=== PATIENT | female | born 1950 | race Caucasian/White ===

== ENCOUNTER 2017-03-27 07:01 | Inpatient (IN) ==
--- NOTE | 2017-03-24 11:43 | EKG Report ---
Stationary ECG Study [facility] Test Date: 03/24/2017 11:40:11 AM Pat Name: KULDIP ORTIZ Department: Room: Gender: F Certified Alcohol And Drug Counselor: EDD 03-27-17 : 1950 Requested by: Luc Georges Order Number: [id number] Reading MD: GINA COLVIN Intervals Martin Rate: 66 P: 76 IL: 173 QRS: 83 QRSD: 92 T: 73 QT: 407 QTc: 421 Interpretive Statements SINUS RHYTHM Electronically Signed On 03-24-17 14:40:07 CDT by GINA COLVIN [email or web address]
[2017-03-27] MEDS ORDERED: SODIUM CHLORIDE 0.9% 100 ML IV ONE (07:13)
[2017-03-27] MEDS ORDERED: ceFAZolin 1,000 MG VIAL ONE (07:13)
[2017-03-27] MEDS: LACTATED RINGERS 1,000 ML IV SCH (07:40)
--- NOTE | 2017-03-27 10:48 | Fluoroscopy Report ---
Exam: [place] cholangiogram in surgery Date: 03/27/2017 12:00 AM Comparison: None Indication: Cholelithiasis Technique:[49 C-arm films obtained after the injection of contrast material into the cystic duct. Fluoroscopy time of 21.3 seconds documented. Findings: Reported open cholecystectomy with leakage of the contrast material in the gallbladder bed location. Minimal dilatation of the bile ducts with no obstructing calculus. Probable small air bubble. Contrast in the duodenum.] Impression: Apparent open cholecystectomy with leakage of the contrast material in the gallbladder bed location. Minimal dilatation of the bile ducts with no obstructing calculus or obvious mass. PROCEDURE INTERPRETED AT [facility] DEPARTMENT OF RADIOLOGY Final Report Signed by: Dr. Rochelle Hernandez
[2017-03-27] MEDS ORDERED: LIDOCAINE 1%/EPI INJ 20 ML VIAL ONE (10:54)
--- NOTE | 2017-03-27 10:54 | Operative Note ---
Date of procedure: 03/27/17 Pre-op diagnosis: Cholelithiasis with chronic cholecystitis Post-op diagnosis: same Procedure: Laparoscopic converted to open cholecystectomy with intraoperative cholangiogram (22) Findings and technique: After informed consent was obtained patient was brought the operating room and placed in supine position. After successful induction of general anesthesia the patient's abdomen was prepped and draped in usual sterile fashion. Patient had a large chevron incision in her upper abdomen from her previous liver resection. She also had a large lower midline incision. I picked a free spot above her umbilicus and made a small transverse incision and used an open technique to gain entry into the peritoneal cavity. It was apparent on upon entering her abdomen that the entire upper abdomen was full of adhesions. I established a pneumoperitoneum after a Amita cannula was inserted under direct vision. Camera was inserted and I found the free space well down in the right lower quadrant and placed a 5 mm port. I attempted to dissect along the right colon and free up a window over the colon to gain entry in free space into the right upper quadrant trocar to identify the gallbladder. I dissected this direction for a while and did not feel that this was feasible. I then placed a port in the left upper quadrant and tried going from the left side to get into this area and encountered still very dense adhesions with the stomach and colon adhesions to the anterior abdominal wall. I then elected to convert to an open procedure through her old right chevron incision making a subcostal incision to the lateral aspect of her scar. Sharp dissection was carried down directly into the peritoneal cavity which was essentially liberated by adhesions. This had to be tediously freed up freeing the colon from the anterior abdominal wall and from the undersurface of the liver and from the gallbladder. The gallbladder was identified and dissection kept right on the wall the gallbladder freeing up the colon and freeing up down to the neck of the gallbladder. I incised the peritoneum over the neck of the gallbladder where there was a stone at the gallbladder neck. I elected to open the gallbladder at this point extract the stone and shoot a cholangiogram through the distal neck of the gallbladder which was normal. It showed a long cystic duct and that I was well away from the common bile duct. I had ligated the cystic duct at this location and doubly clipped the cystic artery as it branched over the medial neck of the gallbladder. I left the most distal part of the neck in place and dissected the gallbladder free from the liver bed without difficulty or blood loss. The gallbladder was removed and the liver bed irrigated inspected for bleeding and no bleeding or bile leakage noted. The fascial defect was closed with a running 0 PDS suture and skin incisions closed with 4-0 Vicryl subcuticular suture and tissue adhesive. This was much more difficult procedure than usual because of her previous liver surgery. This greatly added the complexity the case and essentially doubled the usual operative time. Anesthesia: GETA, local Surgeon / Physician: Andre Young III. Estimated blood loss: minimal Specimens: other (Gallbladder) Condition: stable Disposition: PACU Discharge Plan - Discharge Medications No Action Gabapentin Cap/Tab [Neurontin Cap/Tab] 300 mg PO TID Venlafaxine [Effexor] 75 mg PO DAILY Omeprazole [Prilosec] 40 mg PO DAILY - Follow Up or Referral - Forms/Instructions
--- NOTE | 2017-03-27 10:54 | Anesthesia Post-Op ---
Anesthesia Post OP - Post Ansesthetic Evaluation Patient seen in post op: Yes Resp: within normal limits CV: within normal limits Mental: within normal limits Temp: within normal limits Lydk-Xi-Xupeszwij: within normal limits Nausea and Vomiting: within normal limits Pain: within normal limits
[2017-03-27] MEDS ORDERED: ONDANSETRON 4 MG/2 ML VIAL IV PRN ×2 (10:55→11:07)
[2017-03-27] MEDS ORDERED: PROPOFOL 200 MG/20 ML VIAL IV ONE (10:56)
[2017-03-27] MEDS ORDERED: DEXAMETHASONE 10 MG/1 ML VIAL ONE (10:56)
[2017-03-27] MEDS ORDERED: SEVOFLURANE 1 UNIT/15 MINUTE INH ONE (10:56)
[2017-03-27] MEDS ORDERED: NEOSTIGMINE 10 MG/10 ML VIAL ONE (10:57)
[2017-03-27] MEDS ORDERED: LACTATED RINGERS 1,000 ML IV ONE (10:57)
[2017-03-27] MEDS ORDERED: GLYCOPYRROLATE 0.4 MG/2 ML VIAL ONE (10:57)
[2017-03-27] MEDS ORDERED: ONDANSETRON 4 MG/2 ML VIAL ONE (10:57)
[2017-03-27] MEDS ORDERED: ROCURONIUM 100 MG/10 ML VIAL IV ONE (10:57)
[2017-03-27] MEDS ORDERED: SUCCINYLCHOLINE 200 MG/10 ML VIAL ONE (10:57)
[2017-03-27] MEDS ORDERED: HYDROmorphone 2 MG/1 ML VIAL ONE (10:59)
[2017-03-27] MEDS: HYDROmorphone 2 MG/1 ML VIAL IV PRN ×4 (11:01→11:16)
[2017-03-27] MEDS ORDERED: BUPIVACAINE 0.5% 50 ML VIAL ONE (11:36)
[2017-03-27] MEDS ORDERED: EPINEPHrine 1 MG/ML VIAL ONE (11:38)
[2017-03-27 11:42] LABS: Hematocrit 41.8 VOL% (35.7-47.0); Hemoglobin 14.2 GM/DL (12.0-16.0)
[2017-03-27] MEDS ORDERED: ACETAMINOPHEN 1,000 MG/100 ML VIAL IV ONE (13:30)
[2017-03-27] MEDS: HYDROmorphone PCA 30 MG/30 ML SYRINGE IV SCH (13:49)
[2017-03-27] MEDS: DEXTROSE 5% LACTATED RINGERS 1,000 ML IV SCH (13:49)
[2017-03-27 19:08] LABS: Hematocrit 38.3 VOL% (35.7-47.0); Hemoglobin 13.1 GM/DL (12.0-16.0)
[2017-03-28] MEDS: DEXTROSE 5% LACTATED RINGERS 1,000 ML IV SCH ×2 (04:45→10:42)
[2017-03-28 05:20] LABS: Hematocrit 37.8 VOL% (35.7-47.0); Hemoglobin 12.9 GM/DL (12.0-16.0); Immature Granulocytes % 0.6 %; Immature Granulocytes Absolute 0.04 #; Lymphocytes # 0.6 10*3/uL (1.4-4.0); Lymphocytes % 8.8 % (21.3-54.2); Mean Corpuscular HGB Conc 34.1 GM/DL (32-36); Mean Corpuscular Hemoglobin 31 PG (27-34); Mean Corpuscular Volume 90.6 FL (87-102); Mean Platelet Volume 11.5 FL (9.6-12.0); Monocytes # 0.4 10*3/uL (0.11-0.8); Monocytes % 6.8 % (1.7-12.7); Neutrophils # 5.4 10*3/uL (1.4-7.4); Neutrophils % 83.8 % (38.7-73.9); Platelet Count 134 T/CUMM (130-400); Red Blood Count 4.17 MC/CUMM (3.8-5.5); Red Cell Distribution Width 12.5 % (9.3-17.3); White Blood Count 6.5 T/CUMM (4-12)
[2017-03-28 05:43] LABS: Calcium 8.7 MG/DL (8.5-10.1); Osmolality,Calculated 277.4 MOS/KG (273-304); Potassium 4.1 MMOL/L (3.5-5.1)
[2017-03-28] MEDS: LACTATED RINGERS 1,000 ML IV SCH (06:50)
--- NOTE | 2017-03-28 07:04 | Event Note ---
She feels well but has the expected postoperative pain from her right upper quadrant incision. Her lab work looks good and her vital signs are stable. I would like to keep her on the EDGERMAN today and I think she should be probably ready for discharge in the morning.
[2017-03-28] MEDS: ENOXAPARIN 40 MG/0.4 ML SYRINGE SUBCUT SCH (08:45)
[2017-03-28] MEDS ORDERED: fentaNYL 100 MCG/2 ML VIAL ONE (08:54)
[2017-03-28] MEDS ORDERED: SODIUM CHLORIDE 0.9% 100 ML IV ONE (08:54)
[2017-03-28] MEDS ORDERED: PROPOFOL 200 MG/20 ML VIAL IV ONE (08:54)
[2017-03-28] MEDS: HYDROmorphone PCA 30 MG/30 ML SYRINGE IV SCH (10:43)
--- NOTE | 2017-03-28 14:48 | Discharge Summary ---
Hospital Course - Hospital Course Hospital Course: 66-year-old female with history of GERD seen in the clinic by Dr. Hector VILCHIS for follow-up of symptomatic cholecystitis. She was admitted on 05/[address] Hector VILCHIS where he performed a laparoscopic converted to open cholecystectomy with intraoperative cholangiogram. Patient is having some issues with some pain control so she will keep her TEST PILOT another day. Otherwise she is tolerating a diet and ambulating in the room. If her pain is under better control tomorrow she can be DC'd home with a one-week follow-up with Dr. Hector VILCHIS. Prescription for [place] was given in complete discharge instructions were given. Care coordination, chart review, and completed discharge paperwork took approximately 33 minutes. - Time spent with patient Time with patient DS: Greater than 30 minutes Specialty Discharge - Follow Up or Referrals Follow up with: Andre Young III., MD [Physician] - 04/03/17 2:15 pm Discharge Plan - Discharge Data Disposition: Disch To Home/Self Care Condition at Discharge: Stable Discharge Diet: advance to your usual diet Activity: no lifting Hygiene: may shower Driving: other (No driving if taking pain medication) Contact your physician if you experience:: fever over 101, Nausea/Vomiting Wound / Dressing Care Instructions: shower daily with mild soap and water, pat dry, okay to leave open to the air - Discharge Medications New HYDROcodone/ACETAMIN 7.5-325 [[place] 7.5-325] 1 tablet PO Q4H PRN #30 tablet PRN Reason: Pain Moderate (4-7) Continue Gabapentin Cap/Tab [Neurontin Cap/Tab] 300 mg PO TID Venlafaxine [Effexor] 75 mg PO DAILY Omeprazole [Prilosec] 40 mg PO DAILY - Follow Up or Referral Follow Up: Andre Young III., MD [Physician] - 04/03/17 2:15 pm - Forms/Instructions Exam - Constitutional Vitals: Period Temp Pulse Resp BP Sys/Ramirez Pulse Ox Last 24 Hr 96.6 F-98.0 F 66-82 16-20 112-141/50-74 98-100 Discharge Results Labs on day of discharge: Labs from last 24 hours 03/28/17 03/28/17 03/27/17 04:54 04:54 18:24 WBC 6.5 RBC 4.17 Hgb 12.9 13.1 Hct 37.8 38.3 MCV 90.6 MCH 31 MCHC 34.1 RDW 12.5 Plt Count 134 MPV 11.5 Neut % (Auto) 83.8 H Lymph % (Auto) 8.8 L Dunn % (Auto) 6.8 Eos % (Auto) 0.0 Baso % (Auto) 0.0 Neut # (Auto) 5.4 Lymph # (Auto) 0.6 L Dunn # (Auto) 0.4 Eos # (Auto) 0.0 Baso # (Auto) 0.0 Immature Gran % 0.6 Nucleated RBC % 0.0 Immature Gran # 0.04 Nucleated RBCs # 0.00 Immature Plt Fraction 0.0 Sodium 140 Potassium 4.1 Chloride 104 Carbon Dioxide 32 Anion Gap 8.1 BUN 7 Creatinine 0.80 GFR Calculation 81 BUN/Creatinine Ratio 8.00 Glucose 113 H Calculated Osmolality 277.4 Calcium 8.7 DS: Provider Date of admission: 03/27/17 Primary care physician: Akbar David MD Attending physician on admission: Hector III Discharging clinician: CRISTIANO Silvestre Expected date of discharge: 03/29/17
[2017-03-28] MEDS: GABAPENTIN 300 MG CAPSULE PO SCH ×2 (14:59→20:19)
[2017-03-28] MEDS: VENLAFAXINE 75 MG TABLET PO SCH (14:59)
[2017-03-28] MEDS ORDERED: HYDROmorphone 2 MG/1 ML VIAL IV PRN (15:44)
[2017-03-28] MEDS ORDERED: NALOXONE 0.4 MG/ML VIAL IV PRN (15:59)
[2017-03-28] MEDS ORDERED: HYDROmorphone PCA 30 MG/30 ML SYRINGE IV SCH (16:00)
[2017-03-29 07:57] VITALS: BP 136/66
[2017-03-29] MEDS: VENLAFAXINE 75 MG TABLET PO SCH (08:26)
[2017-03-29] MEDS: GABAPENTIN 300 MG CAPSULE PO SCH (08:26)
[2017-03-29] MEDS: ENOXAPARIN 40 MG/0.4 ML SYRINGE SUBCUT SCH (08:26)
--- NOTE | 2017-03-29 09:00 | Event Note ---
03/29/2017 Patient is tolerating her diet well and bowel movements sitting up without problems. Incision is clean and dry without any swelling. We will go ahead and plan to discharge today
--- NOTE | 2017-03-31 13:25 | Pathology Report from [facility] ---
[facility] [place] ACCESSION # : [id number] PATIENT NAME : Rylee Ortiz ORDERING DR : FATMATA HUITRON III, MD CLINICAL HX: Cholelithiasis POST-OP DX: Same SPECIMEN INFO: Gallbladder GROSS DESCRIPTION: The specimen is received in formalin labeled with the patients name and consists of a focally intact gallbladder measuring 6.5 x 3.4 cm. The serosa is dark pink-lui. The wall averages 0.2 cm in thickness. The mucosa is erythematous and diffusely granular. The lumen contains two yellow- lui stones together measuring 2.5 x 1.4 cm. Separately in the container are two yellow-lui stones together measuring 2.5 x 1.4 cm with the largest of these stones measuring up to 1.3 cm. [employer] tissue submitted in one cassette. DIAGNOSIS FOR RYLEE ORTIZ: GALLBLADDER, CHOLECYSTECTOMY: Chronic cholecystitis; cholelithiasis. COLLECTED DATE: 03/27/2017 [facility] REPORT DATE: 03/28/2017 ELECTRONICALLY SIGNED BY: Parvez Lazcano M.D. 03/28/2017 - 9:46:00 JOSSIE
== END 2017-03-29 09:10 | disposition home or self-care (01) | DRG 416 ==
LOC: N.OR 07:01 → N.SDSINP 07:02 → N.3E 12:32
PROVIDERS: ADMIT Surgery; ATTEND Surgery
PROC: LAPCHOL (2017-03-27 09:06)